=== PATIENT | female | born 1960 | race Caucasian/White ===

== ENCOUNTER 2017-12-04 13:47 | Outpatient (CLI) | payer OTHER ==
--- NOTE | 2017-12-04 15:48 | ULT ---
SOFT TISSUE ULTRASOUND OF THE NECK: Date: 12/04/17 HISTORY: Palpable pulsatile mass in the midline of the lower neck. TECHNIQUE: Multiplanar Peters scale and color Doppler images were obtained in a targeted ultrasound of the neck at the area of palpable abnormality. FINDINGS: At the area of palpable abnormality, in the lower midline of the neck, there is a vascular structure demonstrating arterial flow which represents the right common carotid artery. This is more superficia l and tortuous than the left common carotid artery. Flow is seen within this vessel without significa nt atherosclerotic disease. IMPRESSION: The palpable abnormality represents a more tortuous more superficial right common carotid artery. POS: [facility]
== END 2017-12-04 13:48 | disposition home or self-care (01) ==
LOC: BICULT 13:47
PROVIDERS: ATTEND Family Medicine
DX: R22.1 Localized swelling, mass and lump, neck (principal); I77.1 Stricture of artery
CPT/HCPCS: 76536

== ENCOUNTER 2018-02-11 15:58 | Emergency (ER) | payer OTHER ==
--- NOTE | 2018-02-11 17:43 | RAD ---
ONE VIEW CHEST: History: Pain. Comparison: None. FINDINGS: There is a large hiatal hernia. Upper normal cardiac silhouette. The pulmonary vessels and hilum are normal. Costophrenic angles are clear. No mass. No consolidation. No pneumothorax or osseous abnormal ities. IMPRESSION: No acute cardiopulmonary process. POS: [facility]
[2018-02-11 17:54] LABS: #Lymphocytes 1.1 thou/uL (1.20-3.40); #Monocytes 0.4 thou/uL (0.11-0.59); #Neutrophils 3.1 thou/uL (1.40-6.50); %Basophils 0.6 % (0.0-1.0); %Eosinophils 0.9 % (0.0-10.0); %Lymphocytes 23.8 % (21.0-51.0); %Monocytes 8.8 % (0.0-10.0); %Neutrophils 65.9 % (42.0-75.0); Mean Corpuscular HGB CONC 32.3 g/dL (32.0-36.0); Mean Corpuscular Hemoglobin 25.9 pg (27.0-31.0); Mean Corpuscular Volume 80.3 fL (78.0-98.0); Mean Platelet Volume 6.6 fL (7.4-10.4); Platelet Count 376 thou/uL (130-400); RBC Distribution Width 13.8 % (11.5-14.5); Red Blood Cell (RBC) Count 4.64 mill/uL (4.20-5.40); White Blood Cell (WBC) Count 4.6 thou/uL (4.8-10.8)
[2018-02-11 18:10] LABS: ALT (SGPT) 17 U/L (8-55); AST (SGOT) 20 U/L (5-34); Albumin 4.4 g/dL (3.5-5.0); Alkaline Phosphatase 71 U/L (40-150); Anion Gap 13 mmol/L (10-20); BUN (Urea Nitrogen) 7 mg/dL (9.8-20.1); Bilirubin, Total 0.2 mg/dL (0.2-1.2); Calc. Creatinine Clearance 0 mL/min (70-130); Calcium 9.4 mg/dL (7.8-10.44); Carbon Dioxide 26 mmol/L (22-29); Chloride 107 mmol/L (98-107); Estimated GFR-MDRD 78; Globulin 3.6 g/dL (2.4-3.5); Glucose 79 mg/dL (70-105); Potassium 3.2 mmol/L (3.5-5.1); Sodium 143 mmol/L (136-145)
[2018-02-11 22:05] LABS: Troponin I Less than 0.010 ng/mL (< 0.028)
== END 2018-02-11 22:45 | disposition home or self-care (01) ==
LOC: ERS 15:58
DX: F41.9 Anxiety disorder, unspecified (principal); Z79.899 Other long term (current) drug therapy
CPT/HCPCS: 36415; 71045; 80053; 84484; 85025; 93005

== ENCOUNTER 2018-03-09 08:55 | Outpatient (CLI) | payer OTHER ==
--- NOTE | 2018-03-09 11:39 | RAD ---
LUMBAR SPINE FOUR VIEWS: History: Low back pain with radiculopathy with left sided pain. FINDINGS: There is moderate dextroscoliosis. Very large hiatal hernia. There are several borderline sized small bowel loops with gas, nonspecific, possibly some mild ileus or enteritis or very low grade partial s mall bowel obstruction. Generalized disc osteophytosis and facet arthrosis. No abnormal translation b etween flexion and extension. IMPRESSION: Dextroscoliosis with generalized spondylosis without abnormal translation between flexion and extensi on. Very large hiatal hernia. Minimally abnormally dilated small bowel loops in the central abdomen, nonspecific. The possibilities include that of low grade small bowel obstruction versus ileus and pos sibly enteritis. Code T POS: [facility]
--- NOTE | 2018-03-09 11:43 | MRI ---
MRI OF LUMBAR SPINE: DATE: 03/09/2018. COMPARISON: None. HISTORY: A 57-year-old female with low back pain and radiculopathy. TECHNIQUE: Multiplanar, multisequence MR imaging of the lumbar spine provided without contrast. FINDINGS: There is a mild degree of dextroscoliosis of the lumbar spine centered at the L2-3 level. The sagittal STIR imaging demonstrates no focal areas of osseous marrow edema. Significant fatty mar row noted within the sacrum. On the basis of 5 lumbar-type vertebral bodies, conus medullaris terminates at the T12-L1 level. T12-L1: There is disk space narrowing and disk desiccation with mild bilateral facet hypertrophy. N o significant central canal or neural foraminal stenosis is noted. L1-2: There is disk space narrowing and disk desiccation with anterior osteophyte formation and mini mal disk bulge. There is mild bilateral facet hypertrophy. There is no significant central canal or neural foraminal stenosis. L2-3: There is bilateral facet hypertrophy. There is prominent left lateral osteophyte formation. There is disk space narrowing and disk desiccation with minimal disk bulge. No significant central c anal or neural foraminal stenosis evident. L3-4: Mild bilateral facet hypertrophy. Disk space narrowing, disk desiccation, and mild disk bulge with no significant central canal or neural foraminal stenosis. L4-5: Intervertebral disk height and signal intensity grossly unremarkable. Mild facet hypertrophy present on the right. No significant central canal or neural foraminal stenosis. L5-S1: Bilateral facet hypertrophy, right greater than left. Right lateral osteophyte formation. N o significant central canal stenosis. Mild right neural foraminal stenosis. The imaged retroperitoneal structures demonstrate no acute findings. There is a small T2 hyperintens e lesion within the right lobe of the liver measuring 1.1 cm, too small to characterize. Statistical ly, this likely represents a cyst. IMPRESSION: Degenerative changes within the lumbar spine as detailed above. POS: [facility]
== END 2018-03-09 08:56 | disposition home or self-care (01) ==
LOC: TBSIIMAG 08:55
PROVIDERS: ATTEND Neurological Surgery
DX: M47.26 Other spondylosis with radiculopathy, lumbar region (principal); M41.9 Scoliosis, unspecified; K44.9 Diaphragmatic hernia without obstruction or gangrene; K63.89 Other specified diseases of intestine
CPT/HCPCS: 72110; 72148

== ENCOUNTER 2018-03-21 08:20 | Outpatient (CLI) | payer OTHER ==
[2018-03-21] MEDS ORDERED: Iopamidol 370 76% 100 ML VIAL ONE (10:20)
--- NOTE | 2018-03-21 10:52 | CT ---
CTA THORAX WITH CONTRAST: (Computed Tomographic Angiography, chest(noncoronary) with contrast material, and image postprocessin g) (PE protocol) DATE: 03-21-2018 TIME: 9:08 A.M. HISTORY: 57-year-old female with dyspnea. R06.[address] Wilson, colleague of Dr. Rito Moscoso, of the PE at 9:26 a.m. on 03-21-18. He in structed the patient to go to the Emergency Department. Dr. Brown notified Dr. Lawrence Rojas of the [facility] Department at 9:28 a.m. that this patient will be sent to the ER. The patient was sent to the ER. TECHNIQUE: IV injection of iodinated contrast: 100 ml Isovue 370 Scan acquisition timing attempted to coincide with iodinated contrast bolus reaching maximal density in pulmonary arteries. 3D MIP reconstructions. FINDINGS: There is thrombus material in pulmonary artery branches on the right, including distal portion of rig ht upper lobe pulmonary artery, and its proximal and midlevel branches. On the contralateral side, there are smaller amounts of pulmonary thromboembolism in the first order branches of the lingular segment of left upper lobe pulmonary artery. There is no thrombus in the pulmonic trunk or in the left and right main pulmonary arteries. No thora cic aortic aneurysm or dissection. No cardiomegaly, pericardial effusion, pleural effusion, suspiciou s pulmonary mass, ground glass densities, or pneumothorax. There is a paraesophageal hiatal hernia with greater than 50% volume of stomach in the mediastinum. T he hernia sac displaces the heart anteriorly. There are rinds of subsegmental atelectasis around the hernia. IMPRESSION: 1. Positive for bilateral pulmonary thromboembolism. 2. Large paraesophageal hiatal hernia. rebecca POS: [facility]
== END 2018-03-21 08:21 | disposition home or self-care (01) ==
LOC: CT 08:20
PROVIDERS: ATTEND Family Medicine
DX: R06.02 Shortness of breath (principal); I26.99 Other pulmonary embolism without acute cor pulmonale; K44.9 Diaphragmatic hernia without obstruction or gangrene
CPT/HCPCS: 71275; 82565; Q9967

== ENCOUNTER 2018-03-21 09:36 | Observation (INO) | payer OTHER ==
[2018-03-21 10:12] LABS: #Basophils 0.1 thou/uL (0.0-0.2); #Eosinphils 0.1 thou/uL (0.0-0.7); #Monocytes 0.4 thou/uL (0.11-0.59); #Neutrophils 3.4 thou/uL (1.40-6.50); %Basophils 1.4 % (0.0-1.0); %Eosinophils 1.4 % (0.0-10.0); %Lymphocytes 20.9 % (21.0-51.0); %Monocytes 8.6 % (0.0-10.0); %Neutrophils 67.7 % (42.0-75.0); Hemoglobin 10.6 g/dL (12.0-16.0); Mean Corpuscular HGB CONC 32.2 g/dL (32.0-36.0); Mean Corpuscular Hemoglobin 25.2 pg (27.0-31.0); Mean Corpuscular Volume 78.2 fL (78.0-98.0); Mean Platelet Volume 6.7 fL (7.4-10.4); Platelet Count 341 thou/uL (130-400); RBC Distribution Width 14.2 % (11.5-14.5)
[2018-03-21 10:18] LABS: PTT 25.3 SEC (22.9-36.1); Prothrombin Time 12.9 SEC (12.0-14.7)
[2018-03-21 10:30] LABS: D-Dimer Test 1.08 *mcg/mL (0.27-0.43)
[2018-03-21 10:37] LABS: ALT (SGPT) 15 U/L (8-55); AST (SGOT) 21 U/L (5-34); Albumin 4.3 g/dL (3.5-5.0); Alkaline Phosphatase 84 U/L (40-150); Anion Gap 14 mmol/L (10-20); BUN (Urea Nitrogen) 21 mg/dL (9.8-20.1); Bilirubin, Total 0.4 mg/dL (0.2-1.2); CK (CPK) 243 U/L (29-168); Calc. Creatinine Clearance 0 mL/min (70-130); Calcium 9.5 mg/dL (7.8-10.44); Carbon Dioxide 25 mmol/L (22-29); Chloride 104 mmol/L (98-107); Estimated GFR-MDRD 74; Globulin 3.4 g/dL (2.4-3.5); Glucose 101 mg/dL (70-105); Protein, Total 7.7 g/dL (6.0-8.3); Sodium 139 mmol/L (136-145)
[2018-03-21] MEDS ORDERED: Enoxaparin Sodium 80 MG/0.8 ML SYRINGE ONE (11:21)
--- NOTE | 2018-03-21 13:12 | ULT ---
VENOUS DUPLEX SONOGRAM BILATERAL LOWER EXTREMITY: History: Bilateral leg pain and edema. FINDINGS: Each common femoral vein and greater saphenous junction were evaluated along with each femoral, deep femoral, popliteal, and posterior tibial vein. There is good color and spectral doppler flow, destiny lambert, and augmentation. IMPRESSION: No sonographic evidence of DVT within either lower extremity. POS: [facility]
[2018-03-21 13:58] LABS: INR-International Normal Ratio 1.1; PTT 31.1 SEC (22.9-36.1)
[2018-03-21 14:00] LABS: D-Dimer Test 1.38 *mcg/mL (0.27-0.43)
[2018-03-21] MEDS ORDERED: Ondansetron ODT 4 MG TAB PO PRN (14:20)
[2018-03-21] MEDS ORDERED: Ondansetron PF 4 MG/2 ML Vial IVP PRN (14:20)
[2018-03-21] MEDS ORDERED: Nitroglycerin 0.4 MG TAB (25 Tab Bottle) PO PRN (14:20)
[2018-03-21] MEDS ORDERED: hydrALAZINE 20 MG/ML VIAL SLOW IVP PRN (14:23)
[2018-03-21] MEDS: Sodium Chloride 0.9% 1,000 ML IV SCH (15:00)
[2018-03-21] MEDS ORDERED: Amlodipine 5 MG TAB PO PRN (17:04)
--- NOTE | 2018-03-21 17:29 | HP ---
PRIMARY CARE PHYSICIAN: Rito Moscoso. CHIEF COMPLAINT: Shortness of breath of 3 weeks duration. HISTORY OF PRESENT ILLNESS: The patient is a 57-year-old female with family history of thromboembolism, presented to the emergency room after abnormal CT scan of the chest. The CT scan of the chest was consistent with bilateral pulmonary embolism. The patient has been short of breath for almost a month. The shortness of breath is progressively getting worse. She gets short of breath on minimal exertion. No cough, wheezing, orthopnea, paroxysmal nocturnal dyspnea reported. She had right lower extremity swelling, recently that has resolved. She denies any history of malignancy or recent immobilization. She underwent colonoscopy 2 years ago that was negative. She is up-to-date with mammograms. She denies any weight loss. No chest pain reported. PAST MEDICAL HISTORY: 1. Hypertension. 2. Hiatal hernia. 3. Family history of thromboembolism. 4. Chronic low back pain. PAST SURGICAL HISTORY: 1. Colonoscopy 2 years ago. 2. Hysterectomy. 3. Breast biopsy. ALLERGIES: THE PATIENT DENIES ANY DRUG ALLERGIES. CURRENT HOME MEDICATIONS: The patient is unable to recall all of her home medications. She takes; 1. Amlodipine 5 mg daily. 2. BuSpar 10 mg b.i.d. 3. Gabapentin 300 mg b.i.d. 4. Meloxicam 15 mg daily. 5. Valium as needed. SOCIAL HISTORY: The patient currently lives at home with her family. She drinks alcohol socially. No smoking or drug use. FAMILY HISTORY: Brother with DVT and stroke. REVIEW OF SYSTEMS: The patient denies any fever, chills, nausea, vomiting, diaphoresis, or focal deficit. All other review of systems was reviewed and was found negative. PHYSICAL EXAMINATION: VITAL SIGNS: Temperature 97.9, respirations 19, blood pressure 176/96, pulse rate of 88, O2 saturation 97% on room air. GENERAL: A 57-year-old female with respiratory distress on ambulation. Appears comfortable at rest. HEENT: Head; atraumatic, normocephalic. Sclerae anicteric. Moist mucous membranes. No oral lesion. NECK: Supple. No JVD. No carotid bruit. LUNGS: Clear to auscultation bilaterally. No wheezing, rales, rhonchi. HEART: S1 and S2 present. Regular rate and rhythm. No murmurs, rubs, or gallops appreciated. ABDOMEN: Soft, nontender. Bowel sounds present. EXTREMITIES: Trace edema in bilateral lower extremity. No calf tenderness. SKIN: Warm and dry. LYMPH NODES: No palpable lymph nodes in the neck. PERIPHERAL VASCULAR: Radial pulses palpable bilaterally. MUSCULOSKELETAL: No joint swelling or tenderness. LABORATORY FINDINGS: WBC 5, hemoglobin 10.6, hematocrit 32.8, platelet count 341. PT, INR, PTT normal range. D-dimer 1.38. Chemistry showed sodium 139, potassium 4, chloride 104, bicarb 25, BUN 21, creatinine 0.8. Troponins were negative. Homocystine 13.4. CT angiogram of the chest by my review was consistent with bilateral pulmonary embolism. Telemetry monitoring by my review showed sinus rhythm. IMPRESSION: 1. Bilateral pulmonary embolism causing shortness of breath of one month duration. 2. Hypertension. 3. Chronic kidney disease, stage 2. 4. Hiatal hernia. 5. Chronic anemia suspected. PLAN: 1. The patient will be monitored on the telemetry unit. We will continue Lovenox 1 mg/kg. Echocardiogram and lower extremity Doppler will be obtained. We will check thrombosis profile due to family history of thromboembolism. Vital signs q.4 hourly. Resume selected home medications once confirmed. 2. Monitor hemoglobin closely. The patient denies any hematemesis or melena. 3. Plan was discussed with the patient and the family in detail, they stated understanding. Job ID: [id number]
[2018-03-21] MEDS ORDERED: Amlodipine 5 MG TAB PO SCH (17:45)
[2018-03-21 20:05] VITALS: BMI 31.0
[2018-03-21] MEDS: busPIRone HCl 10 MG TAB PO SCH (20:15)
[2018-03-21] MEDS: Gabapentin 300 MG CAP PO SCH (20:15)
[2018-03-21] MEDS: Diazepam 2 MG TAB PO PRN (20:18)
[2018-03-21] MEDS: Acetaminophen 325 MG TAB PO PRN (20:20)
[2018-03-21] MEDS ORDERED: Enoxaparin Sodium 80 MG/0.8 ML SYRINGE SC SCH ×2 (21:00→22:30)
[2018-03-22 05:44] LABS: Hemoglobin 10.3 g/dL (12.0-16.0); Platelet Count 319 thou/uL (130-400)
[2018-03-22] MEDS: Sodium Chloride 0.9% 1,000 ML IV SCH (07:32)
[2018-03-22] MEDS: Amlodipine 5 MG TAB PO SCH (07:54)
[2018-03-22] MEDS: busPIRone HCl 10 MG TAB PO SCH ×2 (07:54→20:26)
[2018-03-22] MEDS: Gabapentin 300 MG CAP PO SCH ×2 (07:54→20:26)
[2018-03-22] MEDS ORDERED: Enoxaparin Sodium 80 MG/0.8 ML SYRINGE SC SCH (09:00)
[2018-03-22] MEDS ORDERED: cloNIDine 0.1 MG TAB PO PRN (11:14)
[2018-03-22] MEDS: Acetaminophen 325 MG TAB PO PRN ×2 (13:54→20:44)
--- NOTE | 2018-03-22 14:39 | PDOC.PN ---
- Subjective Encounter Start Date: 03/22/18 Encounter Start Time: 10:30 Patient seen and examined for B/L PE. SOB on mild exertion. No CP. No new complaints. No overnight events - Objective Resuscitation Status - Order Detail: 03/21/18 14:20 Resuscitation Status Routine Resuscitation Status: FULL: Full Resuscitation MAR Reviewed: Yes Vital Signs & Weight: Vital Signs (12 hours) Temp Pulse Resp BP BP Pulse Ox 03/22/18 11:35 98.1 F 81 14 163/78 H 94 L 03/22/18 08:00 97.8 F 77 20 189/86 H 94 L 03/22/18 04:24 98.1 F 77 19 134/69 92 L Weight Weight 180 lb 12.8 oz Result Diagrams: 03/22/18 04:40 03/21/18 10:00 Radiology Reviewed by me: No (Doppler - No DVT) EKG Reviewed by me: Yes (Tele SR) Phys Exam - Physical Examination Constitutional: NAD Respiratory: no wheezing, no rhonchi Cardiovascular: RRR, no rub Gastrointestinal: soft, non-tender, positive bowel sounds Musculoskeletal: no edema Neurological: moves all 4 limbs Dx/Plan - Plan DVT proph w/lovenox IMPRESSION: 1. Bilateral pulmonary embolism. 2. Hypertension. 3. Chronic kidney disease, stage 2. 4. Hiatal hernia. 5. Chronic anemia suspected. PLAN: Await Echo DVT ruled out DC Lovenox Start Eliquis Patient understands the risk associated with anticoagulation Cont other meds as below Review of Systems - Review of Systems Respiratory: Shortness of Breath, SOB with Excertion. negative: Cough, Dry, Hemoptysis, Pleuritic Pain, Sputum, Wheezing Cardiovascular: negative: chest pain, palpitations, orthopnea, paroxysmal nocturnal dyspnea, edema, light headedness, other Gastrointestinal: negative: Nausea, Vomiting, Abdominal Pain, Diarrhea, Constipation, Melena, Hematochezia, Other - Medications/Allergies Allergies/Adverse Reactions: Allergies Allergy/AdvReac Type Severity Reaction Status Date / Time No Known Allergies Allergy Unverified 03/21/18 14:44 Medications: Current Medications Acetaminophen (Tylenol) 650 mg PO Q4H PRN PRN Reason: Headache/Fever/Mild Pain (1-3) Last Admin: 03/22/18 13:54 Dose: 650 mg Amlodipine Besylate (Norvasc) 5 mg PO DAILY [facility] Last Admin: 03/22/18 07:54 Dose: 5 mg Amlodipine Besylate (Norvasc) 5 mg PO DAILY PRN PRN Reason: SBP GREATER THAN 160 Apixaban (Eliquis) 10 mg PO BID [facility] Buspirone HCl (Buspar) 10 mg PO BID [facility] Last Admin: 03/22/18 07:54 Dose: 10 mg Clonidine (Catapres) 0.1 mg PO Q4H PRN PRN Reason: Systolic BP > 180 Diazepam (Valium) 2 mg PO Q12HR PRN PRN Reason: Anxiety Last Admin: 03/21/18 20:18 Dose: 2 mg Gabapentin (Neurontin) 300 mg PO BID [facility] Last Admin: 03/22/18 07:54 Dose: 300 mg Hydralazine HCl (Apresoline) 10 mg SLOW IVP Q4H PRN PRN Reason: SBP Greater Than 180 Nitroglycerin (Nitrostat) 0.4 mg PO Q5MIN PRN PRN Reason: Chest Pain Ondansetron HCl (Zofran Odt) 4 mg PO Q6H PRN PRN Reason: Nausea/Vomiting Ondansetron HCl (Zofran) 4 mg IVP Q6H PRN PRN Reason: Nausea/Vomiting Pantoprazole Sodium (Protonix) 40 mg PO DAILY [facility] Last Admin: 03/22/18 07:53 Dose: 40 mg Sodium Chloride (Flush - Normal Saline) 10 ml IVF PRN PRN PRN Reason: Saline Flush Tramadol HCl (Ultram) 50 mg PO Q4H PRN PRN Reason: Moderate Pain (4-6)
[2018-03-22] MEDS: Apixaban 5 MG TAB PO SCH (20:27)
[2018-03-22] MEDS: Diazepam 2 MG TAB PO PRN (20:37)
[2018-03-22] MEDS: traMADol HCl 50 MG TAB PO PRN (20:42)
[2018-03-23 05:30] LABS: Hemoglobin 9.8 g/dL (12.0-16.0); Platelet Count 298 thou/uL (130-400)
[2018-03-23 05:54] LABS: Anion Gap 12 mmol/L (10-20); BUN (Urea Nitrogen) 17 mg/dL (9.8-20.1); Calc. Creatinine Clearance 112 mL/min (70-130); Calcium 8.7 mg/dL (7.8-10.44); Carbon Dioxide 24 mmol/L (22-29); Chloride 108 mmol/L (98-107); Estimated GFR-MDRD 85; Glucose 94 mg/dL (70-105); Magnesium 2.2 mg/dL (1.6-2.6); Potassium 3.8 mmol/L (3.5-5.1); Sodium 140 mmol/L (136-145)
[2018-03-23] MEDS: traMADol HCl 50 MG TAB PO PRN (08:13)
[2018-03-23] MEDS: Acetaminophen 325 MG TAB PO PRN (08:14)
[2018-03-23] MEDS: busPIRone HCl 10 MG TAB PO SCH (08:14)
[2018-03-23] MEDS: Amlodipine 5 MG TAB PO SCH (08:14)
[2018-03-23] MEDS: Apixaban 5 MG TAB PO SCH (08:14)
[2018-03-23] MEDS: Gabapentin 300 MG CAP PO SCH (08:14)
[2018-03-23 08:28] VITALS: BP 160/78; TEMP 97.5
--- NOTE | 2018-03-23 09:40 | DIS ---
DATE OF ADMISSION: 03/21/2018 DATE OF DISCHARGE: 03/23/2018 DISCHARGE DISPOSITION: Home FOLLOWUP: Follow up with primary care physician, Dr. Rito Moscoso in 1 week. ALLERGIES: NO KNOWN DRUG ALLERGIES. THE PATIENT WAS SEEN AND EXAMINED ON THE DAY OF DISCHARGE. DENIES ANY NEW COMPLAINTS. NO CHEST PAIN, SHORTNESS OF BREATH OR PALPITATIONS. DISCHARGE MEDICATIONS: 1. Eliquis 10 mg twice a day for another 6 days followed by 5 mg twice a day. 2. Amlodipine 5 mg daily. 3. BuSpar 10 mg b.i.d. 4. Diazepam as needed. 5. Nexium 20 mg daily. INPATIENT CONSULTANTS: None. DIAGNOSTIC TESTS: Echocardiogram showed left ventricular ejection fraction greater than 60% to 65% with normal right ventricular size and function. Mitral valve and aortic valves were normal. There was mild tricuspid regurgitation. Bilateral lower extremity Doppler was negative for DVT. BRIEF HOSPITAL COURSE: The patient is a 57-year-old female, who was sent to the emergency room after abnormal CT scan of the chest. CT scan of the chest showed bilateral pulmonary embolism. She underwent a Doppler that was negative for DVT. She also underwent an echocardiogram that was negative for right-sided strain. Her troponins were negative. She was started on Lovenox that has been changed to Eliquis. Due to family history of venous thromboembolism, she underwent a thrombosis profile that is pending at the time of discharge. TEST PENDING AT DISCHARGE: Thrombosis profile. Primary care physician advised to follow. FINAL DIAGNOSES: 1. Shortness of breath secondary to bilateral pulmonary embolism of unclear etiology. 2. Hypertension. 3. Chronic kidney disease, stage 2. 4. Hiatal hernia. 5. Chronic anemia. 6. Obesity with a BMI of 31. SIGNIFICANT LABS: CBC showed WBC of 5 with hemoglobin 10.6. Platelets were normal at 298. Her hemoglobin on the day of discharge is 9.8. She would benefit from a repeat CBC next week. On the day of discharge, the patient is asymptomatic and denies any hematochezia or melena. PLAN: Plan was discussed with the patient in detail, she stated understanding. Risk of anticoagulation discussed with the patient, she stated understanding. Job ID: [id number]
[2018-03-23 12:48] LABS: Protein C Activity 140 % (78-152)
[2018-03-23 12:54] LABS: Factor VIII Test 224.5 % ACTIVE (56-157)
[2018-03-23 15:42] LABS: Cardiolipin IgA Ab 1.2 APL-U/mL (<14 Negative); Cardiolipin IgG Ab 0.5 GPL-U/mL (<10 Negative); Cardiolipin IgM Ab 5.1 MPL-U/mL (<10 Negative); EliA APS New Method **** NEW METHOD ****
[2018-03-26 06:29] LABS: HEX PHOS LA Tube 1 71.4 SEC; HEX PHOS LA Tube 2 61.9 SEC; Hexagonal Phospholipid Neut 9.5 SEC (0-8.0)
[2018-03-27 16:12] LABS: Activated Protein C Resistance 2.6 ratio (.)
== END 2018-03-23 11:03 | disposition home or self-care (01) ==
LOC: ERS 09:36 → ERHOLD 10:40 → INTOOBSV 10:40 → 2SW 18:36
PROVIDERS: ADMIT Internal Medicine; ATTEND Internal Medicine
DX: I26.99 Other pulmonary embolism without acute cor pulmonale (principal); I12.9 Hypertensive chronic kidney disease with stage 1 through stage 4 chronic kidney disease, or unspecified chronic kidney disease; N18.2 Chronic kidney disease, stage 2 (mild); D63.1 Anemia in chronic kidney disease; K44.9 Diaphragmatic hernia without obstruction or gangrene; G89.29 Other chronic pain; M54.5 Low back pain; E66.9 Obesity, unspecified; Z68.31 Body mass index [BMI] 31.0-31.9, adult; Z79.899 Other long term (current) drug therapy
CPT/HCPCS: 36415; 36416; 80048; 80053; 81240; 81241; 82550; 83090; 83735; 84484; 85014; 85018; 85025; 85049; 85240; 85300; 85303; 85305; 85307; 85379; 85598; 85610; 85730; 86147; 93306; 93970; 94760; 96372; 96374; 96376; G0378; J1650

== ENCOUNTER 2018-05-23 06:04 | Day surgery (SDC) | payer OTHER ==
[2018-05-22 10:53] VITALS: BMI 32.1
--- NOTE | 2018-05-22 23:51 | HP ---
HISTORY OF PRESENT ILLNESS: This is a 57-year-old female, comes for EGD for chronic acid reflux. The patient is known to have chronic reflux for several years. She also had a hiatus hernia. The patient has a pulmonary embolism in March of 2018 and was placed on Eliquis twice a day. She has worsening acid reflux over the last few months. She has heartburn . No history of dysphagia or odynophagia. She is on Nexium once a day and the Nexium does not control her symptoms. The patient underwent EGD because of above reasons. ALLERGIES: NONE. SOCIAL HISTORY: The patient does not smoke or drink alcohol. MEDICAL ILLNESSES: 1. Hypertension. 2. Osteoarthritis. 3. Allergic rhinitis. 4. Anxiety. 5. Chronic back pain. 6. Chronic acid reflux. 7. Pulmonary embolism in March 2018. 8. Hysterectomy. 9. Breast biopsy. PHYSICAL EXAMINATION: GENERAL: The patient appears comfortable. VITAL SIGNS: Her pulse is 70, blood pressure 130/84. HEENT: Conjunctivae clear. NECK: Supple. No adenitis or thyromegaly noted. CARDIOVASCULAR SYSTEM: First and second heart sounds heard. LUNGS: Clear to auscultation. ABDOMEN: Soft. No organomegaly. No tenderness. No masses. ADMITTING DIAGNOSIS: A 57-year-old female with chronic acid reflux, worsening symptoms, started taking Nexium. The patient underwent EGD. Job ID: [id number]
--- NOTE | 2018-05-23 10:25 | OP ---
DATE OF PROCEDURE: 05/23/2018 PROCEDURE PERFORMED: Esophagogastroduodenoscopy. PREOPERATIVE DIAGNOSIS: A 57-year-old female with hiatal hernia, persistent acid reflux, undergoing EGD. Apparently, she had seen Dr. Felipe Kramer recently and plan is being made for the hiatal hernia repair in sometime June of 2018. POSTOPERATIVE DIAGNOSES: 1. Normal colon mucosa. 2. Z-line identified at 36 cm from the incisors. 3. Large paraesophageal hiatal hernia. 4. Normal duodenal bulb, descending duodenum not seen. DESCRIPTION OF PROCEDURE: The patient was placed on the left lateral position and was given sedation by Anesthesia Department. A Pentax video gastroscope under direct vision passed down the oropharynx past the GE junction into the stomach. Although, the patient had persistent acid reflux on endoscopy. The esophagus appeared normal. No erosions or any esophagitis seen. The Z-line was seen at 36 cm from the incisors. The patient had a large paraesophageal hiatal hernia. The patient almost appeared to have a partial gastric volvulus. As the scope kept looping up, there was difficult really to visualize the pyloric opening. It took quite a few minutes really to get into the pyloric channel. There was no pathology seen. However, the scope kept looping up when I could advance the scope into the duodenal bulb and I could not pass into the descending duodenum. Our site got back and forth several times, but I could not really get the scope to get into descending duodenum. The duodenal bulb, gastric antrum, no pathology seen. The stomach itself showed no pathology, except for large paraesophageal hiatal hernia. The stomach decompressed and the scope removed. DISCHARGE PLANNING: This is a 57-year-old female came for EGD because of chronic acid reflux, which had been getting worse recently. EGD showed normal esophageal mucosa and no esophagitis or any erosion seen. The patient underwent the procedure and did well. The patient advised as before. She will return to see Dr. Felipe Kramer in the near future. Job ID: [id number]
[2018-05-23] MEDS ORDERED: PROPOFOL 200 MG/20 ML VIAL ONE (14:32)
== END 2018-05-23 08:37 | disposition home or self-care (01) ==
LOC: SDC 06:04
PROVIDERS: ATTEND Internal Medicine Gastroenterology
PROC: 0DJ08ZZ Inspection of Upper Intestinal Tract, Via Natural or Artificial Opening Endoscopic (ICD-10-PCS; principal; 2018-05-23)
DX: K21.9 Gastro-esophageal reflux disease without esophagitis (principal); K44.9 Diaphragmatic hernia without obstruction or gangrene; I10 Essential (primary) hypertension; M19.90 Unspecified osteoarthritis, unspecified site; J30.9 Allergic rhinitis, unspecified; F41.9 Anxiety disorder, unspecified; M54.9 Dorsalgia, unspecified; G89.29 Other chronic pain; I26.99 Other pulmonary embolism without acute cor pulmonale; Z79.01 Long term (current) use of anticoagulants; Z79.899 Other long term (current) drug therapy
CPT/HCPCS: J2704

== ENCOUNTER 2018-07-06 01:50 | Outpatient (CLI) | payer OTHER ==
[2018-07-06 11:37] LABS: #Eosinphils 0.1 thou/uL (0.0-0.7); #Lymphocytes 1.4 thou/uL (1.20-3.40); #Monocytes 0.6 thou/uL (0.11-0.59); #Neutrophils 4.4 thou/uL (1.40-6.50); %Basophils 0.4 % (0.0-1.0); %Eosinophils 1.2 % (0.0-10.0); %Lymphocytes 21.2 % (21.0-51.0); %Monocytes 8.6 % (0.0-10.0); %Neutrophils 68.5 % (42.0-75.0); Mean Corpuscular HGB CONC 32.2 g/dL (32.0-36.0); Mean Corpuscular Hemoglobin 24.3 pg (27.0-31.0); Mean Corpuscular Volume 75.4 fL (78.0-98.0); Mean Platelet Volume 7.4 fL (7.4-10.4); Platelet Count 345 thou/uL (130-400); RBC Distribution Width 16.2 % (11.5-14.5); Red Blood Cell (RBC) Count 4.13 mill/uL (4.20-5.40); White Blood Cell (WBC) Count 6.4 thou/uL (4.8-10.8)
[2018-07-06 11:59] LABS: Anion Gap 12 mmol/L (10-20); BUN (Urea Nitrogen) 13 mg/dL (9.8-20.1); Calc. Creatinine Clearance 0 mL/min (70-130); Calcium 9.5 mg/dL (7.8-10.44); Carbon Dioxide 28 mmol/L (22-29); Chloride 101 mmol/L (98-107); Estimated GFR-MDRD 70; Glucose 102 mg/dL (70-105); Potassium 4.3 mmol/L (3.5-5.1); Sodium 137 mmol/L (136-145)
--- NOTE | 2018-07-07 13:53 | EKG ---
Test Reason : Blood Pressure : / mmHG Vent. Rate : 077 BPM Atrial Rate : 077 BPM P-R Int : 174 ms QRS Dur : 090 ms QT Int : 376 ms P-R-T Axes : 055 086 017 degrees QTc Int : 425 ms Normal sinus rhythm Nonspecific ST and T wave abnormality Abnormal ECG When compared with ECG of 11-FEB-2018 16:18, No significant change was found Confirmed by DR. Kevon BUCHANAN ([id number]) on 07/07/2018 1:53:28 PM Referred By: DEANDRE Confirmed By:DR. Kevon BUCHANAN
== END 2018-07-06 01:51 | disposition home or self-care (01) ==
LOC: LABBT 01:50
PROVIDERS: ATTEND Surgery
DX: Z01.818 Encounter for other preprocedural examination (principal); K44.9 Diaphragmatic hernia without obstruction or gangrene
CPT/HCPCS: 80048; 85025; 93005; 93010

== ENCOUNTER 2018-07-20 09:45 | Observation (INO) | payer OTHER ==
[2018-07-06 11:02] VITALS: BMI 31.9
[2018-07-20] MEDS ORDERED: Fentanyl 250 MCG/5 ML VIAL ONE ×2 (11:14→11:50)
[2018-07-20] MEDS ORDERED: Bupivacaine/Epinephrine 0.25% 30 ML VIAL ONE (11:47)
[2018-07-20] MEDS ORDERED: Fentanyl 100 MCG/2 ML VIAL ONE ×3 (13:57→16:22)
[2018-07-20] MEDS ORDERED: HYDROmorphone 2 MG/ML VIAL ONE (13:58)
[2018-07-20] MEDS ORDERED: Promethazine HCl 25 MG/ML VIAL ONE (13:58)
[2018-07-20] MEDS ORDERED: HYDROmorphone 2 MG/ML VIAL SLOW IVP PRN (14:16)
[2018-07-20] MEDS ORDERED: Promethazine HCl 25 MG/ML VIAL IM PRN ×3 (14:16→18:20)
[2018-07-20] MEDS ORDERED: Promethazine HCl 25 MG/ML VIAL SLOW IVP PRN (14:16)
[2018-07-20] MEDS ORDERED: Ondansetron HCl/PF 4 MG/2 ML Vial IVP PRN (14:16)
[2018-07-20] MEDS ORDERED: PACU-Morphine 4MG/ML VIAL SLOW IVP PRN (14:16)
[2018-07-20] MEDS ORDERED: hydrALAZINE 20 MG/ML VIAL ONE (15:05)
[2018-07-20] MEDS ORDERED: fentaNYL Citrate/PF 2,000 MCG in Sodium Chloride 0.9% 60 ML IV PRN (15:11)
[2018-07-20] MEDS ORDERED: diphenhydrAMINE 25 MG CAP PO PRN (15:11)
[2018-07-20] MEDS ORDERED: diphenhydrAMINE 50 MG/ML VIAL IVP PRN (15:11)
[2018-07-20] MEDS ORDERED: diphenhydrAMINE 50 MG/ML VIAL IM PRN (15:11)
[2018-07-20] MEDS ORDERED: Zolpidem Tartrate 5 MG TAB PO PRN (15:11)
[2018-07-20] MEDS ORDERED: Naloxone HCl 0.4 mg/ml Vial IV PRN (15:11)
[2018-07-20] MEDS ORDERED: Ondansetron PF 4 MG/2 ML Vial IVP PRN ×2 (15:11→18:20)
--- NOTE | 2018-07-20 15:12 | OP ---
DATE OF PROCEDURE: 07/20/2018 PREOPERATIVE DIAGNOSIS: Paraesophageal hiatal hernia. POSTOPERATIVE DIAGNOSIS: Paraesophageal hiatal hernia. PROCEDURES PERFORMED: 1. Laparoscopic paraesophageal hiatal hernia repair with Anthony fundoplication and mesh. 2. EGD. SURGEON: Melquiades Kramer MD. ANESTHESIA: General. ESTIMATED BLOOD LOSS: Minimal. COMPLICATIONS: None. FINDINGS: Large paraesophageal hiatal hernia with large defect. DESCRIPTION OF PROCEDURE: The patient was taken to the operating room and laid supine on the operating room table. She was placed in lithotomy position. After general anesthetic was obtained, the abdomen was prepped and draped in a sterile fashion. Her legs have been split. OG tube was used to decompress the stomach. Left subcostal 5 mm Optiview trocar was placed in usual fashion and high-flow pneumoperitoneum was obtained. A 5 mm port was placed one-third the way from the umbilicus to the xiphoid, 5 mm ports were placed in the right and left abdomen laterally at the level of the umbilicus, 5 mm ports placed just to the right of the xiphoid. The left subcostal 5 mm port was switched out to an 8 mm port. The snake liver retractor was brought into the right lower incision and used to raise the liver off the GE junction. Dissection was first performed in the gastrohepatic ligament in the bare area that the fatty tissues were opened exposing the right omid of the diaphragm. The mediastinum was entered just medial to the right omid and a circumferential dissection of the esophagus started to be performed. The short gastrics were taken down in the upper part of the stomach on the fundus on the left exposing the left omid. The posterior V of the crura are dissected down. Circumferential dissection of esophagus was performed. The stomach had been brought back into the abdominal cavity. All the hernia sac was dissected off, allowing the GE junction to be brought back into the abdominal cavity as well. A 48 bougie was brought in and its tip left in the antrum of the stomach. Three Ethibond sutures and a tie knot system were used to close the crura posteriorly. No sutures were placed anteriorly. The fundus of the stomach was able to be passed behind the GE junction under no tension. It was brought up anteriorly and a fundoplication was performed by 3 sutures of Ethibond to bring the stomach on the right and left up over the top of the GE junction, the middle suture, a small amount of the esophagus was incorporated into the suture in order to prevent the Anthony from slipping. A flexible perforated Strattice mesh was brought into the sterile field, cut into a 4 x 5 cm rectangle, placed into the abdominal cavity and the posterior repair was reinforced with this mesh. Fibrin glue was used to seal it to the crura. EGD scope was passed through esophagus and stomach to the level of the duodenum without obstruction, withdrawn in the proximal stomach to reveal no obvious stenosis at the GE junction or esophageal hiatus. There was no evidence of mucosal defect or injury to the esophagus or stomach. EGD scope was pulled and removed. The patient was then returned to Recovery in stable condition. All instrument counts, needle counts, lap counts are correct. Job ID: [id number]
[2018-07-20] MEDS ORDERED: Communication Order-Pharmacy FS SCH (15:15)
--- NOTE | 2018-07-20 15:30 | RAD ---
PORTABLE CHEST: HISTORY: Followup of subcutaneous emphysema. COMPARISON: Chest x-ray study from 07/14/2018. FINDINGS: The heart size appears slightly enlarged. There are atelectatic changes in the lung bases. There is subcutaneous emphysema in the supraclavicular neck region, not seen on the prior examination, of unc ertain etiology. I do not see any definite signs of a pneumomediastinum. A large hernia noted on th e prior examination is not definitely seen on this PA projection. I do not see any surgical clips, b ut this could be a postop finding. No history. IMPRESSION: 1. Bibasilar atelectasis. 2. Subcutaneous emphysema in the supraclavicular and neck region. No signs of pneumothorax or defin ite evidence for a pneumomediastinum. POS: [facility]
[2018-07-20] MEDS ORDERED: Morphine 4 MG/ML VIAL ONE (16:05)
[2018-07-20] MEDS ORDERED: D5 1/2 NS w/20 mEq KCL 1,000 ML ONE (17:20)
[2018-07-20] MEDS ORDERED: Dextrose 50% Abboject 50 ML SYRINGE SLOW IVP PRN (18:20)
[2018-07-20] MEDS ORDERED: hydrALAZINE 20 MG/ML VIAL SLOW IVP PRN (18:20)
[2018-07-20] MEDS ORDERED: Gabapentin 300 MG CAP PO PRN (18:20)
[2018-07-20] MEDS ORDERED: Dextrose 5% in Water 1,000 ML IV PRN (18:20)
[2018-07-20] MEDS ORDERED: Acetaminophen 1,000 MG in Premix Bag 1 BAG IVPB PRN (18:20)
[2018-07-20] MEDS ORDERED: Sodium Chloride 0.9% (PF) 10 ML VIAL FS PRN (19:28)
[2018-07-20] MEDS ORDERED: Pantoprazole 40 MG VIAL IVP SCH (19:30)
[2018-07-20] MEDS: D5 1/2 NS w/20 mEq KCL 1,000 ML IV SCH (19:44)
[2018-07-20] MEDS: busPIRone HCl 10 MG TAB PO SCH (23:08)
[2018-07-20] MEDS: Cyclobenzaprine 10 MG TAB PO PRN (23:08)
[2018-07-20] MEDS: Enoxaparin Sodium 40 MG/0.4 ML SYRINGE SC SCH (23:08)
[2018-07-21] MEDS: D5 1/2 NS w/20 mEq KCL 1,000 ML IV SCH ×2 (04:08→13:17)
[2018-07-21] MEDS: busPIRone HCl 10 MG TAB PO SCH ×2 (08:21→21:23)
[2018-07-21] MEDS ORDERED: Pantoprazole 40 MG VIAL IVP SCH (09:00)
[2018-07-21] MEDS: Cyclobenzaprine 10 MG TAB PO PRN ×2 (10:38→21:24)
[2018-07-21] MEDS ORDERED: Acetaminophen 650 MG/20.3 ML UDCUP PO PRN (14:21)
--- NOTE | 2018-07-21 14:32 | PRG ---
DATE OF SERVICE: 07/21/2018 SUBJECTIVE: Ms. Alvarado is doing well today. She is 1 day status post laparoscopic paraesophageal hernia repair. She is tolerating liquids, but still having quite a bit of pain. 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 OBJECTIVE: VITAL SIGNS: Temperature 90 degrees, pulse 64, blood pressure 123/75. LUNGS: Clear to auscultation. CARDIAC: Regular rate and rhythm without murmur or gallop. ABDOMEN: Soft. Postoperative surgical tenderness. No guarding or rebound. EXTREMITIES: Unremarkable. LABORATORY DATA: No labs. ASSESSMENT AND PLAN: Postop hiatal hernia repair. We will plan to observe 1 more day, discontinue her DYED RAW STOCK BLOWER FEEDER and IV fluids, put her on oral analgesics, anticipate discharge home tomorrow. Job ID: [id number]
[2018-07-21] MEDS: Hydrocodone-Acetamin 15 ML UDCUP PO PRN ×2 (17:39→22:49)
[2018-07-21] MEDS: Enoxaparin Sodium 40 MG/0.4 ML SYRINGE SC SCH (21:23)
[2018-07-22] MEDS: Hydrocodone-Acetamin 15 ML UDCUP PO PRN ×3 (06:12→18:15)
[2018-07-22] MEDS: busPIRone HCl 10 MG TAB PO SCH ×2 (09:09→20:27)
[2018-07-22] MEDS: Polyethylene Glycol 3350 17 GM Packet PO SCH (09:09)
[2018-07-22] MEDS ORDERED: Acetaminophen 500 MG TAB PO PRN ×2 (12:54→12:56)
[2018-07-22] MEDS ORDERED: traMADol HCl 50 MG TAB PO PRN ×2 (12:54)
[2018-07-22] MEDS ORDERED: Ibuprofen 600 MG TAB PO PRN (12:55)
[2018-07-22] MEDS ORDERED: Apixaban 5 MG TAB PO SCH (13:15)
--- NOTE | 2018-07-22 13:44 | RAD ---
Exam: Chest 2 views: HISTORY: Follow-up subcutaneous emphysema. FINDINGS: Small bilateral pleural effusions as well as bibasilar pulmonary parenchymal changes probably related to some subsegmental atelectasis. Minimal linear parenchymal changes in the left suprahilar region. No pneumothorax. IMPRESSION: Somewhat progressive small bilateral pleural effusions and bilateral lower lobe parenchymal changes e vidence for partial atelectasis. Minimal vertical linear parenchymal changes in the left suprahilar region probably partial atelectasis. No evidence for other significant acute process. Short-term foll ow-up for clearing or stability suggested.
[2018-07-22] MEDS: Cyclobenzaprine 10 MG TAB PO PRN (20:27)
[2018-07-22] MEDS: Apixaban 5 MG TAB PO SCH (20:27)
[2018-07-23] MEDS: Hydrocodone-Acetamin 15 ML UDCUP PO PRN (06:31)
[2018-07-23] MEDS: Cyclobenzaprine 10 MG TAB PO PRN (06:32)
[2018-07-23 06:35] LABS: Band 3 % (5-11); Eosinophils 3 % (0-10); Hemoglobin 9.7 g/dL (12.0-16.0); Lymphocytes 15 % (21-51); MDiff Complete? YES; Mean Corpuscular HGB CONC 32.6 g/dL (32.0-36.0); Mean Corpuscular Hemoglobin 25.1 pg (27.0-31.0); Mean Corpuscular Volume 76.9 fL (78.0-98.0); Mean Platelet Volume 7.7 fL (7.4-10.4); Monocytes 2 % (0-10); Neutrophil 77 % (42-75); Platelet Count 262 thou/uL (130-400); RBC Distribution Width 15.4 % (11.5-14.5); Red Blood Cell (RBC) Count 3.87 mill/uL (4.20-5.40); White Blood Cell (WBC) Count 5.3 thou/uL (4.8-10.8)
[2018-07-23] MEDS: Polyethylene Glycol 3350 17 GM Packet PO SCH (09:28)
[2018-07-23] MEDS: Apixaban 5 MG TAB PO SCH (09:29)
[2018-07-23] MEDS: busPIRone HCl 10 MG TAB PO SCH (09:29)
--- NOTE | 2018-07-23 10:07 | DIS ---
DATE OF ADMISSION: 07/20/2018 DATE OF DISCHARGE: 07/23/2018 ADMIT DIAGNOSIS: Paraesophageal hiatal hernia. DISCHARGE DIAGNOSIS: Paraesophageal hiatal hernia. PROCEDURES: Laparoscopic paraesophageal hiatal hernia repair with fundoplication and mesh by Dr. Kramer without complication. CONDITION ON DISCHARGE: Improved. STAFF: Melquiades Kramer MD HOSPITAL COURSE: The patient had severe postop pain. She did have most of her stomach, it was up in her chest at the time of surgery, still requiring narcotic pain medicine. On postop day #3, the patient is doing much better. She is breathing better, tolerating a full liquid diet. She is being discharged home. Prescriptions for Lortab elixir, Zofran dissolvable, and pantoprazole are already sent over to [facility]. She will follow up with me in 2 weeks. I recommend that she stay on a full liquid diet until followup. Job ID: [id number]
[2018-07-23 15:29] VITALS: BP 138/84; TEMP 98.3
== END 2018-07-23 16:39 | disposition home or self-care (01) ==
LOC: SDC 09:45 → SURG B 18:27
PROVIDERS: ADMIT Surgery; ATTEND Surgery
PROC: 0BUT4JZ Supplement Diaphragm with Synthetic Substitute, Percutaneous Endoscopic Approach (ICD-10-PCS; principal; 2018-07-23)
DX: K44.9 Diaphragmatic hernia without obstruction or gangrene (principal); G89.18 Other acute postprocedural pain; J98.2 Interstitial emphysema; J90 Pleural effusion, not elsewhere classified; J98.11 Atelectasis; Z86.711 Personal history of pulmonary embolism; Z79.01 Long term (current) use of anticoagulants; Z79.899 Other long term (current) drug therapy
CPT/HCPCS: 36415; 71045; 71046; 85025; 96361; 96372; 96374; 96375; 96376; C9113; G0378; J0131; J0360; J0690; J1170; J1650; J2270; J2405; J2550; J3010; J3490; Q4130